=== PATIENT | female | born 1940 | race Caucasian/White ===

== ENCOUNTER → 2024-04-13 | Outpatient (CLI) | payer MEDICARE | END | disposition home or self-care (01) | LOC: LAB 14:50 → LAB SHORT 14:50 | DX: R39.9 Unspecified symptoms and signs involving the genitourinary system (principal) | CPT/HCPCS: 87086 ==

== ENCOUNTER → 2024-05-05 | Outpatient (CLI) | payer MEDICARE ==
[2024-05-05 19:57] LABS: Albumin/Globulin Ratio 1.1 (0.8-1.8); Bilirubin, Total 0.4 mg/dL (0.1-1.0); Calcium, Blood 10.1 mg/dL (8.5-10.1); Creatinine, Blood 0.82 mg/dL (0.40-1.00); Globulin, Blood 3.7 g/dL (2.2-4.0); Thyroid Stimulating Hormone 2.7 uIU/mL (0.360-4.800); Total Protein, Blood 7.7 g/dL (6.4-8.2)
[2024-05-06 14:04] LABS: Percent Saturation 17.8 % (15.0-50.0)
== END | disposition home or self-care (01) ==
LOC: LAB 17:41 → LAB SHORT 17:41
DX: E03.4 Atrophy of thyroid (acquired) (principal); E06.3 Autoimmune thyroiditis; D50.8 Other iron deficiency anemias; R41.89 Other symptoms and signs involving cognitive functions and awareness
CPT/HCPCS: 80053; 82607; 82728; 82746; 83540; 83550; 84443